=== PATIENT | male | born 1950 | race Caucasian/White ===

== ENCOUNTER → 2018-12-28 | Outpatient (CLI) | payer MEDICARE ==
[2018-12-28 11:01] LABS: HCT 39.5 % (39.0-53.0); HGB 13.4 gm/dL (13.0-17.5); MCH 32.4 pg (25.0-35.0); MCHC 33.9 g/dL (31.0-37.0); MCV 95.7 fL (80.0-100.0); Mean Platelet Volume 8.1; Platelet Count 211 k/uL (150-450); RBC 4.12 m/uL (4.30-5.90); WBC 7.1 k/uL (3.8-10.6)
== END | disposition home or self-care (01) ==
LOC: LABPAT 10:37
PROVIDERS: ATTEND Internal Medicine Interventional Cardiology
DX: Z01.812 Encounter for preprocedural laboratory examination (principal); I10 Essential (primary) hypertension; R94.39 Abnormal result of other cardiovascular function study
CPT/HCPCS: 36415; 80051; 82565; 84520; 85027

== ENCOUNTER → 2019-03-04 | Outpatient (CLI) | payer MEDICARE ==
[2019-03-04 10:39] LABS: HCT 37.9 % (39.0-53.0); HGB 12.4 gm/dL (13.0-17.5); MCH 31.8 pg (25.0-35.0); MCHC 32.6 g/dL (31.0-37.0); MCV 97.6 fL (80.0-100.0); Mean Platelet Volume 8.5; Platelet Count 217 k/uL (150-450); RBC 3.88 m/uL (4.30-5.90); RDW 15.2 % (11.5-15.5); WBC 6.2 k/uL (3.8-10.6)
[2019-03-04 10:40] LABS: Potassium 5.2 mmol/L (3.5-5.1)
== END | disposition home or self-care (01) ==
LOC: LABPAT 09:19
PROVIDERS: ATTEND Internal Medicine Interventional Cardiology
DX: Z01.812 Encounter for preprocedural laboratory examination (principal); R94.39 Abnormal result of other cardiovascular function study
CPT/HCPCS: 36415; 80051; 82565; 84520; 85027

== ENCOUNTER → 2019-03-06 | Day surgery (SDC) | payer MEDICARE ==
[2019-01-08 13:41] VITALS: BMI 32.7
[~2019-03-06] MED LIST: ALPRAZolam 0.25 MG TAB PO PRN; ALPRAZolam 0.5 MG TAB PO PRN; ASPIRIN 325 MG TAB PO ONE; ATORVASTATIN 80 MG TAB PO ONE; NITROGLYCERIN SL TABS 0.4 MG TAB SUBLINGUAL PRN; SODIUM CHLORIDE 0.9% 1,000 ML in EMPTY BAG 1 BAG IV ONE
== END ==
LOC: CATHCVL 11:15
PROVIDERS: ATTEND Internal Medicine Interventional Cardiology
DX: Z53.9 Procedure and treatment not carried out, unspecified reason (principal)

== ENCOUNTER → 2019-03-12 | Day surgery (SDC) | payer MEDICARE ==
--- NOTE | 2019-03-11 10:37 | HP ---
HISTORY AND PHYSICAL Mr. Hurtado is a 68-year-old gentleman with a history of type 2 diabetes with mild CKD, hypertension, hyperlipidemia, CAD with prior bypass surgery. This gentleman underwent aortocoronary bypass surgery on 08/12/2014 with a ARANDA to the diagonal branch, vein graft to the LAD and distal RCA. He has been doing fairly well, but lately he is having symptoms of exertional shortness of breath and chest tightness. I performed a stress Cardiolite scan on December 16. He walked for 4 minutes at a heart rate of 142 beats per minute. There was a moderate intensity moderate-sized inferior wall reversible defect suggestive of ischemia with preserved ejection fraction. He was advised coronary angiography. The rationale, risks, benefits, options are explained. The patient was scheduled to have the procedure done on January 13, but he chose to wait and postponed it until March 12. The patient and understand the rationale, risks, benefits, options and wished to proceed with cardiac catheterization, selective injection of bypass grafts and PCI if necessary. The patient has mildly elevated creatinine. I have advised him to drink plenty of oral fluids 8 to 10 glasses of water and also he will be hydrated. We will use the contrast cautiously. PAST MEDICAL HISTORY: 1. Type 2 diabetes mellitus. 2. Hypertension. 3. Hyperlipidemia. 4. History of CAD with prior bypass surgery in July, with a ARANDA to the diagonal/ramus, vein graft to the LAD and distal RCA. PHYSICAL EXAMINATION: On examination, blood pressure is 130/80, pulse rate is 62 per minute. HEENT: Unremarkable. Fundus was not examined by me. Neck is supple. There is no JVD. I do not hear a carotid bruit. Heart exam reveals S1, S2 with a short systolic murmur at the base. Second heart sound is preserved. Lungs are clear. Abdomen is soft, nontender. Lower extremities reveal diminished pulses. No edema. Central nervous system is normal. Echocardiogram from 2017 revealed normal ejection fraction with mild concentric LVH. IMPRESSION: 1. Coronary artery disease with abnormal stress test suggestive of inferior wall reversible defect and preserved ejection fraction, raising possibility of ischemia in the RCA distribution. 2. History of coronary artery disease with prior bypass surgery. 3. Type 2 diabetes mellitus. 4. Hypertension. 5. Hyperlipidemia. RECOMMENDATIONS: I am recommending coronary angiography and based on findings intervention. The rationale, risks, benefits, options were explained to the patient and . They understand all details and wished to proceed with the procedure. MMODL / IJN: [id number] /
[~2019-03-12] MED LIST changes: +ALPRAZolam 0.25 MG TAB PO ONE; -ALPRAZolam 0.5 MG TAB PO PRN; -ASPIRIN 325 MG TAB PO ONE; +ASPIRIN 325 MG TAB PO STA; -ATORVASTATIN 80 MG TAB PO ONE; +ATORVASTATIN 80 MG TAB PO STA; +HYDROmorphone 1 MG/ML 1 ML SYRINGE IVP ONE; +HYDROmorphone 1 MG/ML 1 ML SYRINGE ONE; +IOPAMIDOL-370 100ML BTL INJ ONE; +IOPAMIDOL-370 50ML BTL INJ ONE; +LIDOCAINE 1% INJ 10MG/ML (20 ML MDV) SQ ONE; +LISINOPRIL 10 MG TAB PO STA; +LISINOPRIL 20 MG TAB PO SCH; +METOPROLOL TARTRATE 50 MG TAB ONE; +METOPROLOL TARTRATE 50 MG TAB PO ONE; +METOPROLOL TARTRATE 50 MG TAB PO SCH; +MIDAZOLAM (PF) 2 MG/2 ML VIAL IV ONE; +NITROGLYCERIN SL TABS 0.4 MG TAB SUBLINGUAL ONE; -NITROGLYCERIN SL TABS 0.4 MG TAB SUBLINGUAL PRN; +SODIUM CHLORIDE 0.9% 1,000 ML IV ONE
[2019-03-12 07:40] LABS: Glucose,Whole Blood 173 mg/dL (75-99)
[2019-03-12 07:55] VITALS: RESP 16; TEMP 98.3
[2019-03-12 07:57] LABS: Calcium 9.2 mg/dL (8.4-10.2); Potassium 4.4 mmol/L (3.5-5.1)
[2019-03-12 11:49] LABS: Glucose,Whole Blood 158 mg/dL (75-99)
--- NOTE | 2019-03-12 11:58 | CC ---
CARDIAC CATHETERIZATION REPORT DATE OF SERVICE: 03/12/2019 PROCEDURE: Left heart catheterization, coronary angiography, selective injection of bypass grafts and aortography. PERFORMED BY: Dr. Jeffrey Dueñas. CLINICAL INFORMATION: Mr. Lake Hurtado is a 68-year-old gentleman with history of type 2 diabetes, hypertension, hyperlipidemia, and CAD. In July,, he underwent aortocoronary bypass surgery with ARANDA to a diagonal, vein graft to the LAD and vein graft to the distal RCA. Circumflex was totally occluded and not grafted. Because of symptoms of angina and a positive stress test with inferolateral reversible defect, he was advised cardiac catheterization after due discussion regarding risks, benefits, and options. His creatinine was elevated. He was hydrated both orally and intravenously and brought in for the procedure. PROCEDURE NOTE: Under local anesthesia and strict aseptic precautions, a 6-Gabonese introducer was placed in the right femoral artery. Standard left Britany catheter was used to perform selective coronary angiography of the left coronary artery. Using a Kelley catheter, I performed selective coronary angiography of the vein graft to the RCA. The same catheter was used to perform the ARANDA injection. I used a AR2 catheter with this I was able to obtain selective injection of the vein graft to the diagonal, which was very difficult to achieve. A significant amount of contrast was given. I used a modified AR catheter to perform selective coronary angiography of the [place] RCA. Aortogram was performed in the VALARIE and GALVEZ projection. Patient tolerated the procedure well. The sheath was taken out and a Perclose device used to secure hemostasis. He was sent to the room in a stable condition. I did not perform a left ventriculogram, but I did check LV pressures. The moderate conscious sedation time for the procedure was 53 minutes. The patient was administered Versed, Dilaudid. His oxygen saturation, hemodynamics and EKG were monitored closely. CARDIAC CATHETERIZATION FINDINGS: LEFT MAIN CORONARY ARTERY: This vessel is subtotally occluded with limited antegrade flow and there is minimal opacification of the LAD with the left injection and there is competitive flow. Actually, left main is also 99% occluded. RIGHT CORONARY ARTERY: This vessel is totally occluded in the proximal portion without much antegrade flow and there is severe disease in the proximal section. SAPHENOUS VEIN GRAFT TO THE RCA: This graft is widely patent at its origin, course and insertion site. Beyond insertion, the PDA and PLV branches have minor diffuse irregularities but no significant disease is noted. The PLV branch has about a 40% to 50% lesion, but the PDA branch has minor diffuse disease, but no significant stenosis. SAPHENOUS VEIN GRAFT TO THE LAD: This graft was very difficult to find. It comes off from a very posterior location and I used an AR2 catheter for this. There is no disease in its origin, course or insertion site. The opacified LAD appears to be small in caliber and distribution. Distally, not much opacification is noted. There is diffuse disease in the distal 1/3 of the LAD. The diagonal was grafted with a ARANDA. LAD itself has minor diffuse disease and irregularities but no significant disease and graft is widely patent. LEFT INTERNAL MAMMARY GRAFT TO LAD: This graft is widely patent at its origin, course, insertion site and opacified diagonal is free of significant disease, has minor irregularities. LEFT VENTRICULOGRAM: Left ventriculogram was not performed. AORTOGRAM: This was performed in VALARIE projection revealed normal size aorta, trileaflet aortic valve, and there are 2 grafts that are coming off one is a RCA graft and one is a LAD graft being opacified. The LAD graft comes from a posterior location and much higher and superiorly. There is minimal aortic insufficiency noted. Aortic root is normal. FINAL IMPRESSION: This patient has total occlusion of [place] RCA and left coronary artery. The vein graft to the RCA is patent with minor diffuse disease in the PLV branch of RCA. PDA also has some diffuse disease but no significant stenosis. The vein graft to the LAD is patent but the LAD itself has diffuse disease distally. The ARANDA to diagonal is patent and the diagonal has no significant disease, has minor irregularities. The aortogram revealed normal size aorta without significant aortic insufficiency and aortogram revealed that both the right and LAD graft and right graft were patent. This patient has significant ischemia probably in the circumflex distribution which is now totally occluded. [place] circulation is almost non-existent. All 3 vein grafts are open, but have minor diffuse disease in the distal branches. Filling pressures are elevated with a left ventricular end-diastolic pressure of 16 mmHg without any gradient across the aortic valve. He has a right dominant system. RECOMMENDATIONS: I am recommending aggressive medical therapy with risk factor modification, discussed with patient and family in detail. No intervention is necessary either by surgery or percutaneously. We will pursue medical therapy with the understanding patient will have angina with moderate effort. I will see him in the office next week and make further recommendations. Prognosis remains guarded. MMODL / IJN: [id number] / MTDD
[2019-03-12 14:10] VITALS: BP 148/70; PULSE 68
== END | disposition home or self-care (01) ==
LOC: CATHCVL 06:56
PROVIDERS: ATTEND Internal Medicine Interventional Cardiology
DX: I25.10 Atherosclerotic heart disease of native coronary artery without angina pectoris (principal); I25.82 Chronic total occlusion of coronary artery; E11.9 Type 2 diabetes mellitus without complications; E78.5 Hyperlipidemia, unspecified; I10 Essential (primary) hypertension; Z95.1 Presence of aortocoronary bypass graft; Z79.82 Long term (current) use of aspirin; Z79.899 Other long term (current) drug therapy
CPT/HCPCS: 93459; 93567; 80048; C1894; C1769 ×2; C1760; J2001; J1170; Q9967 ×2; J2250

== ENCOUNTER → 2019-03-14 | Outpatient (CLI) | payer MEDICARE ==
[2019-03-14 17:05] LABS: African American GFR (CKD) 71.1 (60.0-200.0); Anion Gap 10.4 mmol/L (4.00-12.00); BUN/Creat Ratio 15.83 Ratio (12.00-20.00); Calcium 9.3 mg/dL (8.7-10.3); Carbon Dioxide 22.6 mmol/L (21.6-31.8); Potassium 4.6 mmol/L (3.5-5.5)
== END | disposition home or self-care (01) ==
LOC: LABWHC1 09:12
PROVIDERS: ATTEND Internal Medicine Interventional Cardiology
DX: S37.009A Unspecified injury of unspecified kidney, initial encounter (principal)
CPT/HCPCS: 36415; 80048

== ENCOUNTER → 2021-06-06 | Outpatient (CLI) | payer MEDICARE ==
[2021-06-06 16:26] LABS: African American GFR (CKD) 37.8 (60.0-200.0); Albumin 5.1 g/dL (3.80-4.90); Albumin/Globulin Ratio 2.04 (1.60-3.17); Anion Gap 9.9 mmol/L (4.00-12.00); BUN/Creat Ratio 18.5 Ratio (12.00-20.00); Calcium 9.1 mg/dL (8.7-10.3); Carbon Dioxide 22.1 mmol/L (21.6-31.8); Chol/HDL Ratio 6.35; Globulin 2.5 g/dL (1.6-3.3); Non-African American GFR(CKD) 32.6 (60.0-200.0); Potassium 4.9 mmol/L (3.5-5.5); Total Bilirubin 0.2 mg/dL (0.3-1.2); Total Protein 7.6 g/dL (6.2-8.2)
[2021-06-06 18:44] LABS: Hemoglobin A1C 6.3 % (4.0-6.0)
== END | disposition home or self-care (01) ==
LOC: LABWHC1 08:55
PROVIDERS: ATTEND Family Medicine
DX: E78.5 Hyperlipidemia, unspecified (principal); E11.9 Type 2 diabetes mellitus without complications; I10 Essential (primary) hypertension
CPT/HCPCS: 36415; 80053; 80061; 83036; 83721

== ENCOUNTER → 2021-12-21 | Outpatient (CLI) | payer MEDICARE ==
[2021-12-21 20:12] LABS: ALT 20 U/L (10-49); AST 20 U/L (14-35); African American GFR (CKD) 39.9 (60.0-200.0); Albumin 4.7 g/dL (3.8-4.9); Albumin/Globulin Ratio 1.81 (1.60-3.17); Alkaline Phosphatase 40 U/L (41-126); BUN/Creat Ratio 16.05 Ratio (12.00-20.00); Blood Urea Nitrogen 30.5 mg/dL (9.0-27.0); Calcium 9.4 mg/dL (8.7-10.3); Carbon Dioxide 21.3 mmol/L (20.0-27.5); Chloride 107 mmol/L (96-109); Chol/HDL Ratio 7.29 Ratio; Globulin 2.6 g/dL (1.6-3.3); Glucose 112 mg/dL (70-110); LDL Cholesterol,Calculated 138.7 mg/dL (0.0-131.0); Non-African American GFR(CKD) 34.5 (60.0-200.0); Potassium 4.8 mmol/L (3.5-5.5); Sodium 142 mmol/L (135-145); Total Protein 7.3 g/dL (6.2-8.2)
== END | disposition home or self-care (01) ==
LOC: LABWHC1 10:58
PROVIDERS: ATTEND Family Medicine
DX: Z12.5 Encounter for screening for malignant neoplasm of prostate (principal); I10 Essential (primary) hypertension; E78.5 Hyperlipidemia, unspecified; E11.9 Type 2 diabetes mellitus without complications
CPT/HCPCS: 80053; 80061; 83036; 36415; G0103

== ENCOUNTER → 2022-07-20 | Outpatient (CLI) | payer MEDICARE ==
[2022-07-20 15:36] LABS: BUN/Creat Ratio 19.23 Ratio (12.00-20.00); Chol/HDL Ratio 7.41 Ratio; Globulin 3.3 g/dL (1.6-3.3); LDL Cholesterol,Calculated 112.9 mg/dL (0.0-131.0)
[2022-07-20 15:37] LABS: ALT 15 U/L (10-49); AST 25 U/L (14-35); Albumin 4.5 g/dL (3.8-4.9); Albumin/Globulin Ratio 1.35 (1.60-3.17); Alkaline Phosphatase 38 U/L (41-126); Blood Urea Nitrogen 32.3 mg/dL (9.0-27.0); Calcium 9.4 mg/dL (8.7-10.3); Carbon Dioxide 20.7 mmol/L (20.0-27.5); Chloride 103 mmol/L (96-109); Glucose 105 mg/dL (70-110); Non-African American GFR(CKD) 39.7 (60.0-200.0); Potassium 4.7 mmol/L (3.5-5.5); Sodium 137 mmol/L (135-145); Total Protein 7.8 g/dL (6.2-8.2)
== END | disposition home or self-care (01) ==
LOC: LABWHC1 09:16
PROVIDERS: ATTEND Family Medicine
DX: Z12.5 Encounter for screening for malignant neoplasm of prostate (principal); I10 Essential (primary) hypertension; E11.9 Type 2 diabetes mellitus without complications; E78.5 Hyperlipidemia, unspecified
CPT/HCPCS: 36415; 80053; 80061; 83036; 84153

== ENCOUNTER → 2022-12-18 | Outpatient (CLI) | payer MEDICARE ==
--- NOTE | 2022-12-18 09:56 | US ---
EXAMINATION TYPE: US kidneys/renal and bladder DATE OF EXAM: 12/18/2022 COMPARISON: NONE CLINICAL HISTORY: I12.9 CKD. CKD 3 EXAM MEASUREMENTS: Right Kidney: 10.2 x 5.0 x 3.9 cm Left Kidney: 10.5 x 4.8 x 3.9 cm Right Kidney: No hydronephrosis or masses seen Left Kidney: No hydronephrosis or masses seen Bladder: wnl Bilateral Jets seen: Yes There is no evidence for hydronephrosis at this point in time. No nephrolithiasis is seen. No hiwot s are identified. The urinary bladder is anechoic. Bilateral ureteral jets are seen. IMPRESSION: No significant abnormality appreciated.
== END | disposition home or self-care (01) ==
LOC: RADUSWWP 08:29
PROVIDERS: ATTEND Internal Medicine Nephrology
DX: I12.9 Hypertensive chronic kidney disease with stage 1 through stage 4 chronic kidney disease, or unspecified chronic kidney disease (principal); N18.30 Chronic kidney disease, stage 3 unspecified
CPT/HCPCS: 76770

== ENCOUNTER → 2023-01-06 | Outpatient (CLI) | payer MEDICARE ==
[2023-01-07 08:15] LABS: ALT 15 U/L (10-49); AST 21 U/L (14-35); African American GFR (CKD) 37.3 (60.0-200.0); Albumin 4.5 g/dL (3.8-4.9); Albumin/Globulin Ratio 1.73 (1.60-3.17); Alkaline Phosphatase 38 U/L (41-126); BUN/Creat Ratio 15.85 Ratio (12.00-20.00); Blood Urea Nitrogen 31.7 mg/dL (9.0-27.0); Calcium 9.6 mg/dL (8.7-10.3); Carbon Dioxide 21.2 mmol/L (20.0-27.5); Chloride 104 mmol/L (96-109); Chol/HDL Ratio 7.95 Ratio; Globulin 2.6 g/dL (1.6-3.3); Glucose 128 mg/dL (70-110); LDL Cholesterol,Calculated 134.4 mg/dL (0.0-131.0); Non-African American GFR(CKD) 32.2 (60.0-200.0); Potassium 4.9 mmol/L (3.5-5.5); Sodium 137 mmol/L (135-145); Total Protein 7.1 g/dL (6.2-8.2)
== END | disposition home or self-care (01) ==
LOC: LABWHC1 09:23
PROVIDERS: ATTEND Family Medicine
DX: I10 Essential (primary) hypertension (principal); E11.9 Type 2 diabetes mellitus without complications; E78.5 Hyperlipidemia, unspecified
CPT/HCPCS: 36415; 80053; 80061; 83036

== ENCOUNTER → 2023-05-02 | Outpatient (CLI) | payer MEDICARE ==
[2023-05-02 17:15] LABS: Basophils # (A) 0.05 X 10*3/uL (0.00-0.10); Basophils % (A) 1.3 %; Eosinophils % (A) 5.1 %; HCT 37.1 % (39.6-50.0); HGB 11.8 d/dL (13.0-17.0); Lymphocytes # (A) 1.41 X 10*3/uL (0.90-5.00); Lymphocytes % (A) 36.1 %; MCHC 31.8 d/dL (32.0-37.0); MCV 103.6 FL (80.0-97.0); Mean Platelet Volume 11.3 FL (9.5-12.2); Monocytes # (A) 0.44 X 10*3/uL (0.20-1.00); Monocytes % (A) 11.3 %; NRBC Per 100 WBC 0 X 10*3/uL (0.00-0.01); Neutrophils % (A) 45.9 %; Platelet Count 218 X 10*3/uL (140-440); RBC 3.58 X 10*6/uL (4.40-5.60); WBC 3.91 X 10*3/uL (4.50-10.00)
[2023-05-02 17:38] LABS: % Iron Saturation 20.35 (15.00-50.00); ALT 17 U/L (10-49); AST 23 U/L (14-35); Albumin 4.7 d/dL (3.8-4.9); Albumin/Globulin Ratio 1.74 Ratio (1.60-3.17); Alkaline Phosphatase 41 U/L (41-126); Blood Urea Nitrogen 29.2 mg/dL (9.0-27.0); Calcium 9.5 mg/dL (8.7-10.3); Carbon Dioxide 22.2 mmol/L (21.6-31.8); Chloride 105 mmol/L (96-109); Globulin 2.7 d/dL (1.6-3.3); Glucose 93 mg/dL (70-110); Iron 82 UG/DL (65-175); Phosphorus 2.9 mg/dL (2.4-5.1); Potassium 5.1 mmol/L (3.5-5.5); Sodium 139 mmol/L (135-145); Total Bilirubin <0.2 mg/dL (0.3-1.2); Total Iron Binding Capacity 403 UG/DL (228-460); Total Protein 7.4 d/dL (6.2-8.2)
[2023-05-02 20:27] LABS: Appearance,Urine Clear (Clear); Bilirubin,Urine Negative (Negative); Blood,Urine Negative (Negative); Color,Urine Yellow (Yellow); Ketones,Urine Negative (Negative); Nitrite,Urine Negative (Negative); PH, Urine 6.5; Specific Gravity,Urine 1.014 (1.001-1.030); Urobilinogen,Urine 0.2 E.U./DL
[2023-05-02 23:37] LABS: Urine Creatinine 47.8 mg/dL (39.0-259.0)
== END | disposition home or self-care (01) ==
LOC: LABWHC1 09:03
PROVIDERS: ATTEND Internal Medicine Nephrology
DX: I12.9 Hypertensive chronic kidney disease with stage 1 through stage 4 chronic kidney disease, or unspecified chronic kidney disease (principal); N18.30 Chronic kidney disease, stage 3 unspecified
CPT/HCPCS: 36415; 80053; 81003; 82043; 82570; 82728; 83540; 83550; 83970; 84100; 85025

== ENCOUNTER → 2023-09-01 | Outpatient (CLI) | payer MEDICARE ==
[2023-09-01 13:29] LABS: ALT 17 U/L (10-49); AST 20 U/L (14-35); Albumin 4.4 g/dL (3.8-4.9); Albumin/Globulin Ratio 1.76 Ratio (1.60-3.17); Alkaline Phosphatase 39 U/L (41-126); BUN/Creat Ratio 16.55 Ratio (12.00-20.00); Blood Urea Nitrogen 33.1 mg/dL (9.0-27.0); Calcium 9.4 mg/dL (8.7-10.3); Carbon Dioxide 19.2 mmol/L (21.6-31.8); Chloride 106 mmol/L (96-109); Chol/HDL Ratio 3.96 Ratio; Globulin 2.5 g/dL (1.6-3.3); Glucose 82 mg/dL (70-110); LDL Cholesterol,Calculated 63.8 mg/dL (0.0-131.0); Potassium 4.8 mmol/L (3.5-5.5); Prostate Specific Antigen 0.31 ng/mL (0.000-6.500); Sodium 138 mmol/L (135-145); Total Bilirubin 0.3 mg/dL (0.3-1.2); Total Protein 6.9 g/dL (6.2-8.2)
== END | disposition home or self-care (01) ==
LOC: LABWHC1 08:51
PROVIDERS: ATTEND Family Medicine
DX: Z12.5 Encounter for screening for malignant neoplasm of prostate (principal); I10 Essential (primary) hypertension; E11.9 Type 2 diabetes mellitus without complications; E78.5 Hyperlipidemia, unspecified
CPT/HCPCS: 36415; 80053; 80061; 83036; 84153

== ENCOUNTER → 2023-10-27 | Outpatient (CLI) | payer MEDICARE ==
[2023-10-27 13:23] LABS: Basophils # (A) 0.03 X 10*3/uL (0.00-0.10); Basophils % (A) 0.8 %; Eosinophils # (A) 0.16 X 10*3/uL (0.04-0.35); Eosinophils % (A) 4.4 %; HCT 37.6 % (39.6-50.0); HGB 12.2 g/dL (13.0-17.0); Lymphocytes # (A) 1.05 X 10*3/uL (0.90-5.00); Lymphocytes % (A) 29.2 %; MCH 33.4 pg (27.0-32.0); MCHC 32.4 g/dL (32.0-37.0); Mean Platelet Volume 10.8 FL (9.5-12.2); Monocytes # (A) 0.36 X 10*3/uL (0.20-1.00); NRBC Per 100 WBC 0 X 10*3/uL (0.00-0.01); Neutrophils # (A) 1.99 X 10*3/uL (1.80-7.70); Neutrophils % (A) 55.3 %; Platelet Count 270 X 10*3/uL (140-440); RBC 3.65 X 10*6/uL (4.40-5.60)
[2023-10-27 13:47] LABS: % Iron Saturation 35.62 (15.00-50.00); ALT 18 U/L (10-49); AST 24 U/L (14-35); Albumin 4.5 g/dL (3.8-4.9); Albumin/Globulin Ratio 1.55 Ratio (1.60-3.17); Alkaline Phosphatase 42 U/L (41-126); BUN/Creat Ratio 14.75 Ratio (12.00-20.00); Blood Urea Nitrogen 29.5 mg/dL (9.0-27.0); Calcium 9.4 mg/dL (8.7-10.3); Carbon Dioxide 21.5 mmol/L (21.6-31.8); Chloride 103 mmol/L (96-109); Globulin 2.9 g/dL (1.6-3.3); Glucose 119 mg/dL (70-110); Iron 156 UG/DL (65-175); Phosphorus 2.9 mg/dL (2.4-5.1); Potassium 4.8 mmol/L (3.5-5.5); Sodium 136 mmol/L (135-145); Total Bilirubin 0.3 mg/dL (0.3-1.2); Total Iron Binding Capacity 438 UG/DL (228-460); Total Protein 7.4 g/dL (6.2-8.2)
[2023-10-27 13:50] LABS: Appearance,Urine Clear (Clear); Bilirubin,Urine Negative (Negative); Blood,Urine Negative (Negative); Color,Urine Yellow (Yellow); Ketones,Urine Negative (Negative); Nitrite,Urine Negative (Negative); PH, Urine 5.5; Specific Gravity,Urine 1.017 (1.001-1.030); Urobilinogen,Urine 0.2 E.U./DL
[2023-10-27 14:13] LABS: Urine Creatinine 80.8 mg/dL (39.0-259.0)
== END | disposition home or self-care (01) ==
LOC: LABWHC1 09:23
PROVIDERS: ATTEND Internal Medicine Interventional Cardiology
DX: I12.9 Hypertensive chronic kidney disease with stage 1 through stage 4 chronic kidney disease, or unspecified chronic kidney disease (principal); N18.9 Chronic kidney disease, unspecified
CPT/HCPCS: 36415; 80053; 81003; 82043; 82570; 82728; 83540; 83550; 83970; 84100; 85025

== ENCOUNTER → 2024-03-10 | Outpatient (CLI) | payer MEDICARE ==
[2024-03-10 14:43] LABS: ALT 13 U/L (10-49); AST 23 U/L (14-35); Albumin 4.5 g/dL (3.8-4.9); Albumin/Globulin Ratio 1.61 Ratio (1.60-3.17); Alkaline Phosphatase 40 U/L (41-126); BUN/Creat Ratio 14.79 Ratio (12.00-20.00); Blood Urea Nitrogen 28.1 mg/dL (9.0-27.0); Calcium 9.1 mg/dL (8.7-10.3); Carbon Dioxide 20.9 mmol/L (21.6-31.8); Chloride 104 mmol/L (96-109); Chol/HDL Ratio 7.79 Ratio; Globulin 2.8 g/dL (1.6-3.3); Glucose 90 mg/dL (70-110); Potassium 4.8 mmol/L (3.5-5.5); Sodium 139 mmol/L (135-145); Total Bilirubin <0.2 mg/dL (0.3-1.2); Total Protein 7.3 g/dL (6.2-8.2)
== END | disposition home or self-care (01) ==
LOC: LABWHC1 08:53
PROVIDERS: ATTEND Family Medicine
DX: E11.9 Type 2 diabetes mellitus without complications (principal); I10 Essential (primary) hypertension; E78.5 Hyperlipidemia, unspecified
CPT/HCPCS: 36415; 80053; 80061; 83036; 83721

== ENCOUNTER → 2024-04-03 | Outpatient (CLI) | payer MEDICARE ==
[2024-04-03 15:25] LABS: BUN/Creat Ratio 16.33 Ratio (12.00-20.00); Blood Urea Nitrogen 39.2 mg/dL (9.0-27.0); Calcium 9.3 mg/dL (8.7-10.3); Carbon Dioxide 19.4 mmol/L (21.6-31.8); Chloride 103 mmol/L (96-109); Glucose 116 mg/dL (70-110); Potassium 5.1 mmol/L (3.5-5.5); Sodium 136 mmol/L (135-145)
== END | disposition home or self-care (01) ==
LOC: LABWHC1 12:04
PROVIDERS: ATTEND Internal Medicine Interventional Cardiology
DX: I25.10 Atherosclerotic heart disease of native coronary artery without angina pectoris (principal); E11.22 Type 2 diabetes mellitus with diabetic chronic kidney disease; N18.9 Chronic kidney disease, unspecified
CPT/HCPCS: 36415; 80048

== ENCOUNTER → 2024-05-03 | Outpatient (CLI) | payer MEDICARE | END | disposition home or self-care (01) | LOC: LABPRL 13:00 | PROVIDERS: ATTEND Internal Medicine Nephrology | CPT/HCPCS: 80053; 82043; 82570; 82728; 83540; 83550; 83970; 84100; 85025 ==

== ENCOUNTER → 2024-09-22 | Outpatient (CLI) | payer MEDICARE ==
[2024-09-22 15:49] LABS: ALT 21 U/L (10-49); AST 26 U/L (14-35); Albumin 4.6 g/dL (3.8-4.9); Alkaline Phosphatase 38 U/L (41-126); Blood Urea Nitrogen 29.7 mg/dL (9.0-27.0); Calcium 9.4 mg/dL (8.7-10.3); Carbon Dioxide 23.9 mmol/L (21.6-31.8); Chloride 105 mmol/L (96-109); Chol/HDL Ratio 4.25 Ratio; Globulin 2.7 g/dL (1.6-3.3); Glucose 114 mg/dL (70-110); LDL Cholesterol,Calculated 47.8 mg/dL (0.0-131.0); Potassium 5.3 mmol/L (3.5-5.5); Prostate Specific Antigen 0.51 ng/mL (0.000-6.500); Sodium 141 mmol/L (135-145); Total Bilirubin 0.3 mg/dL (0.3-1.2); Total Protein 7.3 g/dL (6.2-8.2)
== END | disposition home or self-care (01) ==
LOC: LABWHC1 11:39
PROVIDERS: ATTEND Physician Assistant Medical
DX: Z12.5 Encounter for screening for malignant neoplasm of prostate (principal); I10 Essential (primary) hypertension; E78.5 Hyperlipidemia, unspecified; E11.9 Type 2 diabetes mellitus without complications
CPT/HCPCS: 36415; 80053; 80061; 83036; 84153

== ENCOUNTER → 2025-04-24 | Outpatient (CLI) | payer MEDICARE ==
[2025-04-24 10:51] LABS: Protein/Creatinine Ratio,Urine 0.302
[2025-04-24 15:26] LABS: Basophils # (A) 0.04 X 10*3/uL (0.00-0.10); Basophils % (A) 0.9 %; Eosinophils # (A) 0.15 X 10*3/uL (0.04-0.35); Eosinophils % (A) 3.4 %; HCT 35.3 % (39.6-50.0); HGB 11.3 g/dL (13.0-17.0); Immature Grans, Automated 0.50 %; Lymphocytes # (A) 1.26 X 10*3/uL (0.90-5.00); Lymphocytes % (A) 28.9 %; MCH 33.4 pg (27.0-32.0); MCHC 32.0 g/dL (32.0-37.0); MCV 104.4 FL (80.0-97.0); Monocytes # (A) 0.42 X 10*3/uL (0.20-1.00); Monocytes % (A) 9.6 %; NRBC Per 100 WBC 0 X 10*3/uL (0.00-0.01); Neutrophils # (A) 2.47 X 10*3/uL (1.80-7.70); Neutrophils % (A) 56.7 %; Platelet Count 244 X 10*3/uL (140-440); RBC 3.38 X 10*6/uL (4.40-5.60); RDW 13.5 % (11.5-14.5); WBC 4.36 X 10*3/uL (4.50-10.00)
[2025-04-24 15:51] LABS: Bilirubin,Urine Negative (Negative); Blood,Urine Negative (Negative); Color,Urine Yellow (Yellow); Ketones,Urine Negative (Negative); Nitrite,Urine Negative (Negative); PH, Urine 5.5; Specific Gravity,Urine 1.020 (1.001-1.030); Urobilinogen,Urine 0.2 E.U./DL
[2025-04-24 15:54] LABS: ALT 14 U/L (10-49); AST 25 U/L (14-35); Albumin 4.3 g/dL (3.8-4.9); Albumin/Globulin Ratio 1.72 Ratio (1.60-3.17); Alkaline Phosphatase 41 U/L (41-126); Anion Gap 14.60 mmol/L (4.00-12.00); BUN/Creat Ratio 12.79 Ratio (12.00-20.00); Blood Urea Nitrogen 30.7 mg/dL (9.0-27.0); Calcium 9.1 mg/dL (8.7-10.3); Carbon Dioxide 20.4 mmol/L (21.6-31.8); Chloride 104 mmol/L (96-109); Cholesterol 181.00 mg/dL (0.00-200.00); Ferritin 303.0 ng/mL (22.0-322.0); Globulin 2.5 g/dL (1.6-3.3); Glucose 124 mg/dL (70-110); HDL Cholesterol 25.70 mg/dL (40.00-60.00); Iron 90 UG/DL (65-175); Potassium 5.0 mmol/L (3.5-5.5); Sodium 139 mmol/L (135-145); Total Iron Binding Capacity 370 UG/DL (228-460); Total Protein 6.8 g/dL (6.2-8.2); Triglycerides 491.00 mg/dL (0.00-149.00); Uric Acid 7.3 mg/dL (3.7-8.7); VLDL Calculation 98.20 mg/dL (5.00-40.00)
[2025-04-24 15:57] LABS: Bacteria,Urine None Seen (None Seen)
[2025-04-24 16:05] LABS: LDL Cholesterol,Direct Reflex 63.00 mg/dL (0.00-129.00)
== END | disposition home or self-care (01) ==
LOC: LABWHC1 08:52
PROVIDERS: ATTEND Nurse Practitioner Adult Health
DX: E11.22 Type 2 diabetes mellitus with diabetic chronic kidney disease (principal); N18.30 Chronic kidney disease, stage 3 unspecified; E78.2 Mixed hyperlipidemia; R53.83 Other fatigue
CPT/HCPCS: 36415; 80053; 80061; 81001; 82043; 82306; 82570; 82728; 83036; 83540; 83550; 83721; 83970; 84100; 84156; 84550; 85025